=== PATIENT | female | born 1965 | race Two or more races ===

== ENCOUNTER 2021-10-05 00:45 | Emergency (ER) | payer SELFPAY ==
[~2021-10-05] VITALS: Ht 165.1 cm; Wt 78.9 kg
[2021-10-05 01:56] VITALS: BP 140/74
[2021-10-05] MEDS ORDERED: IBUP800T27 PO (02:00)
[2021-10-05] MEDS ORDERED: ONDANSETRON ODT 4 MG TAB PO ONE (02:00)
[2021-10-05] MEDS ORDERED: HYDROcodone-ACET 10/325MG TAB PO ONE (02:00)
== END 2021-10-05 03:02 | disposition home or self-care (01) ==
LOC: ER 00:45 → EDBD 00:45 → ER 03:02
DX: S52.592A Other fractures of lower end of left radius, initial encounter for closed fracture (principal); S52.615A Nondisplaced fracture of left ulna styloid process, initial encounter for closed fracture; W01.0XXA Fall on same level from slipping, tripping and stumbling without subsequent striking against object, initial encounter; Y93.89 Activity, other specified; Y92.89 Other specified places as the place of occurrence of the external cause; Y99.8 Other external cause status
CPT/HCPCS: 29125; 73090; 99283; Q0162